=== PATIENT | male | born 1960 | race African-American/Black ===

== ENCOUNTER 2021-07-29 09:56 | Observation (INO) | payer OTHER ==
[2021-07-29] VITALS (9 sets, daily range): BP systolic 125–173; BP diastolic 68–99; TEMP 97.4–98.7; Ht 162.6 cm; Wt 77.3 kg
[~2021-07-29] VITALS: Ht 162.6 cm; Wt 77.3 kg
[2021-07-29 10:50] LABS: PLATELET COUNT 212 K/uL (142-355)
[2021-07-29 10:59] LABS: POTASSIUM 3.1 mmol/L (3.6-5.2)
[2021-07-29 23:37] LABS: POTASSIUM 3.1 mmol/L (3.6-5.2)
[2021-07-30 04:06] VITALS: BP 133/79; TEMP 98.1
[2021-07-30 04:38] LABS: PLATELET COUNT 190 K/uL (142-355)
[2021-07-30 04:48] LABS: POTASSIUM 3.6 mmol/L (3.6-5.2)
[2021-07-30 08:00] VITALS: BP 166/82; TEMP 98.6
[2021-07-30 12:00] VITALS: BP 156/80; TEMP 97.8
[2021-07-30 16:00] VITALS: BP 156/81; TEMP 98.4
[2021-07-30 20:00] VITALS: BP 149/85; TEMP 99.1
[2021-07-31] VITALS: BP 174/78; TEMP 98.6
[2021-07-31 04:00] VITALS: BP 143/79; TEMP 98.5
[2021-07-31 08:00] VITALS: BP 155/85; TEMP 98.5
[2021-07-31] MEDS ORDERED: LISI20TA11 PO (08:03)
[2021-07-31] MEDS ORDERED: GLIM2TAB PO (08:04)
[2021-07-31] MEDS ORDERED: DOCU100C10 PO (08:04)
[2021-07-31] MEDS ORDERED: LIPITOR20 MG PO (08:05)
== END 2021-07-31 12:00 | disposition home or self-care (01) ==
LOC: ED 09:56 → MED/SURG 13:19
PROVIDERS: Emergency Medicine; ADMIT Internal Medicine; ATTEND Internal Medicine
DX: K85.20 Alcohol induced acute pancreatitis without necrosis or infection (principal); R10.9 Unspecified abdominal pain; K59.09 Other constipation; E87.1 Hypo-osmolality and hyponatremia; F10.20 Alcohol dependence, uncomplicated; E11.65 Type 2 diabetes mellitus with hyperglycemia; E83.41 Hypermagnesemia; E66.8 Other obesity; E87.2 Acidosis
CPT/HCPCS: 36415; 80048; 80053; 80074; 80307; 80320; 81000; 82948; 83036; 83690; 83735; 83930; 83935; 84133; 84300; 84443; 85027; 87338; 87635; 96360; 96361; 96372; 96374; 96375; 99220; 99284; G0378; J1815; J2060; J2405; J3490; U0003